=== PATIENT | male | born 1980 | race Caucasian/White ===

== ENCOUNTER 2017-11-07 09:33 | Emergency (ER) | payer SELFPAY ==
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
[2017-11-07] MEDS ORDERED: Albuterol/Ipratropium 3.0-0.5 MG/3 ML Neb Soln NEB ONE (10:44)
--- NOTE | 2017-11-07 15:55 | CR ---
EXAM DATE: 11/07/17 PATIENT'S AGE: 36 Patient: JILL PIKE Facility: [place], [place] Site . Site : 1980 Study: XRay Extremity Right HAND [id number]/27/2018 10:45:40 AM Ordering Physician: Doctor Lebron Final Report: INDICATION: Hand injury. COMPARISON: None. FINDINGS: There is minimal soft tissue swelling noted over the dorsum of the right hand. Soft tissue structures are intact. Bony mineralization is normal. There is no fracture nor dislocation. The joint spaces are preserved. IMPRESSION: Soft tissue swelling right hand but no underlying fracture/dislocation. Dictated by Ellie Donovan MD @ Nov 07 2017 10:48AM (Electronic Signature) Report Signed by Proxy. CYDNEY
--- NOTE | 2017-11-07 15:55 | CR ---
EXAM DATE: 11/07/17 PATIENT'S AGE: 36 Patient: JILL PIKE Facility: [place], [place] Site . Site : 1980 Study: XRay Chest [id number]/27/2018 10:46:42 AM Ordering Physician: Doctor Lebron Final Report: INDICATION: Pain, shortness of breath. COMPARISON: None. FINDINGS: The bony thorax and soft tissue structures are intact. Cardiac mediastinal silhouettes are normal. The pulmonary vasculature is normal. The lungs are free of infiltrate. There are no pleural effusions. IMPRESSION: No active cardiopulmonary disease. Dictated by Ellie Donovan MD @ Nov 07 2017 10:49AM (Electronic Signature) Report Signed by Proxy. [facility]
== END 2017-11-07 12:41 | disposition left against medical advice (07) ==
LOC: MW.ED 09:33
DX: S60.221A Contusion of right hand, initial encounter (principal); R06.00 Dyspnea, unspecified; W22.8XXA Striking against or struck by other objects, initial encounter; F17.210 Nicotine dependence, cigarettes, uncomplicated; Z88.0 Allergy status to penicillin; Z88.8 Allergy status to other drugs, medicaments and biological substances
CPT/HCPCS: 71046; 71046-26; 73130-26-RT; 73130-RT; 94640; 99283-25; J7620-GY